=== PATIENT | male | born 1950 | race Caucasian/White ===

== ENCOUNTER → 2021-04-26 | Outpatient (CLI) | payer MEDICARE, OTHER ==
[~2021-04-26] MED LIST: Iopamidol 370 76% 100 ML VIAL ONE
== END ==
LOC: BICCT 14:00
PROVIDERS: ATTEND Neurological Surgery
DX: R22.1 Localized swelling, mass and lump, neck (principal); M54.2 Cervicalgia; D17.0 Benign lipomatous neoplasm of skin and subcutaneous tissue of head, face and neck
CPT/HCPCS: 70491; 82565; Q9967

== ENCOUNTER 2021-07-10 09:29 | Outpatient (CLI) | payer MEDICARE, OTHER ==
[2021-07-10 11:17] LABS: Hemoglobin 14.6 g/dL (13.5-17.5); Mean Corpuscular HGB CONC 32.4 g/dL (32.0-36.0); Mean Corpuscular Volume 89.5 fl (81.2-95.1); Mean Platelet Volume 8.9 fl (7.4-10.4); Platelet Count 263 10x3/uL (150-450); RBC Distribution Width 15.4 % (11.5-14.5); Red Blood Cell (RBC) Count 5.04 10x6/uL (4.32-5.72); White Blood Cell (WBC) Count 7.1 10x3/uL (3.5-10.5)
[2021-07-10 11:33] LABS: Anion Gap 13 mmol/L (10-20); BUN (Urea Nitrogen) 17 mg/dL (8.4-25.7); Calc. Creatinine Clearance 0 mL/min (70-130); Calcium 9.2 mg/dL (7.8-10.44); Carbon Dioxide 28 mmol/L (23-31); Chloride 105 mmol/L (98-107); Glucose 99 mg/dL (80-115); Potassium 4.8 mmol/L (3.5-5.1); Sodium 141 mmol/L (136-145)
[2021-07-10 17:42] LABS: SARS-CoV-2 PCR by NAA Not Detected (NotDetected)
== END 2021-07-10 09:30 | disposition home or self-care (01) ==
LOC: LABBT 09:29
PROVIDERS: ATTEND Neurological Surgery
DX: Z01.818 Encounter for other preprocedural examination (principal); D33.4 Benign neoplasm of spinal cord; D49.2 Neoplasm of unspecified behavior of bone, soft tissue, and skin; Z20.822 Contact with and (suspected) exposure to COVID-19
CPT/HCPCS: 80048; 85027; 93005; U0003; U0005; 93010

== ENCOUNTER 2021-07-15 08:21 | Observation (INO) | payer MEDICARE ==
[2021-07-04 11:10] VITALS: BMI 38.7
[2021-07-15] MEDS ORDERED: Fentanyl 100 MCG/2 ML VIAL ONE (12:36)
[2021-07-15] MEDS ORDERED: Bacitracin Zinc Ointment 30 gm TUBE ONE (12:41)
[2021-07-15] MEDS ORDERED: ceFAZolin 2 GM/Dextrose 50 ML IVPB ONE (12:48)
[2021-07-15] MEDS ORDERED: Ondansetron PF 4 MG/2 ML Vial ONE (13:03)
[2021-07-15] MEDS ORDERED: ePHEDrine 50 MG/ML VIAL ONE (13:03)
[2021-07-15] MEDS ORDERED: Lidocaine 1% PF 5 ML VIAL ONE (13:03)
[2021-07-15] MEDS ORDERED: Dexamethasone 20 MG/5 ML VIAL ONE (13:03)
[2021-07-15] MEDS ORDERED: Glycopyrrolate 0.2 MG/ML 5 ML SYRINGE ONE (13:03)
[2021-07-15] MEDS ORDERED: PHENYLEPHRINE-NS 100 MCG/ML 10 ML SYRINGE ONE (13:03)
[2021-07-15] MEDS ORDERED: Rocuronium Bromide 10 MG/ML (10ML VIAL) ONE (13:03)
[2021-07-15] MEDS ORDERED: PROPOFOL 200 MG/20 ML VIAL ONE (13:03)
[2021-07-15] MEDS ORDERED: Ketorolac Tromethamine 30 MG/ML VIAL ONE (13:03)
[2021-07-15] MEDS ORDERED: hydrALAZINE 20 MG/ML VIAL ONE (15:07)
[2021-07-15] MEDS ORDERED: Acetaminophen/Codeine 30-300mg Tablet PO PRN ×2 (15:15)
[2021-07-15] MEDS ORDERED: Promethazine HCl 25 MG/ML VIAL IM PRN (15:15)
[2021-07-15] MEDS ORDERED: traMADol HCl 50 MG TAB PO PRN ×2 (15:15)
[2021-07-15] MEDS ORDERED: Milk Of Magnesia 30 ML UDCUP PO PRN (15:15)
[2021-07-15] MEDS ORDERED: Promethazine 25 MG TAB PO PRN (15:15)
[2021-07-15] MEDS ORDERED: Morphine 4 MG/ML VIAL SLOW IVP PRN ×2 (15:15→17:45)
[2021-07-15] MEDS ORDERED: Morphine 2 MG/ML VIAL SLOW IVP PRN (15:15)
[2021-07-15] MEDS ORDERED: diphenhydrAMINE 50 MG/ML VIAL IVP PRN (15:15)
[2021-07-15] MEDS ORDERED: Cyclobenzaprine 10 MG TAB PO PRN (15:15)
[2021-07-15] MEDS ORDERED: Mag-Al 1200 mg/1200 mg/30 ML UDCUP PO PRN (15:15)
[2021-07-15] MEDS ORDERED: diphenhydrAMINE 25 MG CAP PO PRN (15:15)
[2021-07-15] MEDS ORDERED: Ondansetron PF 4 MG/2 ML Vial IVP PRN (15:15)
[2021-07-15] MEDS: Sodium Chloride 0.9% 1,000 ML IV SCH (17:13)
[2021-07-15] MEDS: ceFAZolin 2 GM/Dextrose 50 ML 2 GM in Premix Bag 1 BAG IVPB SCH (20:25)
[2021-07-16] MEDS: Sodium Chloride 0.9% 1,000 ML IV SCH (04:55)
[2021-07-16] MEDS: ceFAZolin 2 GM/Dextrose 50 ML 2 GM in Premix Bag 1 BAG IVPB SCH (04:58)
[2021-07-16] MEDS ORDERED: Tamsulosin HCl 0.4 MG CAP PO SCH (06:00)
[2021-07-16 08:41] VITALS: BP 157/77; TEMP 97.5
== END 2021-07-16 11:38 | disposition home or self-care (01) ==
LOC: SDC 08:21 → SURG B 16:45
PROVIDERS: ADMIT Neurological Surgery; ATTEND Neurological Surgery
DX: D17.0 Benign lipomatous neoplasm of skin and subcutaneous tissue of head, face and neck (principal); Z96.642 Presence of left artificial hip joint
CPT/HCPCS: 96374; 96376; G0378 ×2; 88304; J0360; J0690; J1100; J1885; J2405; J2704; J3010; J3370; J3490